=== PATIENT | male | born 1955 | race Hispanic/Latino ===

== ENCOUNTER → 2022-03-27 | Outpatient (CLI) | payer OTHER | END | disposition home or self-care (01) | LOC: RAH 15:01 | PROVIDERS: ATTEND Student in an Organized Health Care Education/Training Program | DX: N63.20 Unspecified lump in the left breast, unspecified quadrant (principal); D48.5 Neoplasm of uncertain behavior of skin | CPT/HCPCS: 76705 ==

== ENCOUNTER 2022-06-19 07:22 | Day surgery (SDC) | payer OTHER ==
[2022-06-15 10:15] VITALS: BP 132/77
[2022-06-15 10:26] LABS: BASOPHILS % (AUTO) 0.6 % (0.0-5.0); EOSINOPHILS % (AUTO) 1.2 % (0.0-8.0); HEMATOCRIT 41.4 % (42-54); MEAN CORPUSCULAR HEMOGLOBIN 30.5 pg (27.0-33.0); MEAN CORPUSCULAR HGB CONC 34.3 g/dL (32.0-36.0); MONOCYTES % (AUTO) 8.9 % (3.0-13.0); NEUTROPHILS % (AUTO) 46.1 % (40.0-77.0); PLATELET COUNT (AUTO) 192 K/uL (130-400); RED BLOOD CELL COUNT(AUTO) 4.65 MIL/uL (4.50-6.20); RED CELL DISTRIBUTION WIDTH 12.9 % (11.0-15.5); WHITE BLOOD COUNT (AUTO) 4.8 K/uL (4.8-10.8)
[2022-06-15 10:38] LABS: INR 0.93 (0.85-1.15); PROTHROMBIN TIME 10.2 SEC (9.6-11.6)
[2022-06-15 10:39] LABS: PARTIAL THROMBOPLASTIN TIME 32.5 SEC (26.3-35.5)
[2022-06-15 10:41] LABS: ALBUMIN 3.8 g/dL (3.5-5.0); CREATININE 0.8 mg/dL (0.5-1.5); POTASSIUM 4.2 mmol/L (3.5-5.1); TOTAL PROTEIN, SERUM 7.6 g/dL (6.0-8.3)
[2022-06-15 11:00] LABS: APPEARANCE,URINE CLEAR (CLEAR); BILIRUBIN,URINE NEGATIVE (NEGATIVE); COLOR,URINE YELLOW (YELLOW); GLUCOSE, URINE (UA) NEGATIVE (NEGATIVE); KETONES,URINE NEGATIVE (NEGATIVE); LEUKOCYTE ESTERASE ,URINE NEGATIVE Leu/uL (NEGATIVE); NITRATE,URINE NEGATIVE (NEGATIVE); OCCULT BLOOD,URINE NEGATIVE (NEGATIVE); PH,URINE 5.5 (5.0-8.0); PROTEIN,URINE NEGATIVE (NEGATIVE); UROBILINOGEN,URINE 0.2 mg/dL (0.2-1.0)
[2022-06-19] VITALS (15 sets, daily range): BP systolic 15–157; BP diastolic 72–89
[~2022-06-19] VITALS: Ht 167.6 cm; Wt 72.9 kg
[~2022-06-19 07:22] MED LIST: ATOR40TA71 PO; CEFAZOLIN SODIUM 1 GM VIAL IVP SCH; EZET10TA13 PO; GABA-529 PO
[2022-06-19] MEDS ORDERED: FENTANYL CITRATE PF 50 MCG/1 ML 2ML VIAL ONE (08:22)
[2022-06-19] MEDS ORDERED: PROPOFOL 10 MG/ML 20ML VIAL IV ONE (08:22)
[2022-06-19] MEDS ORDERED: MIDAZOLAM HCL 1 MG/ML 2ML VIAL ONE (08:22)
[2022-06-19] MEDS ORDERED: ROCURONIUM 10MG/1ML SYR 10 MG/ML ML ONE (08:29)
[2022-06-19] MEDS ORDERED: ONDANSETRON 4MG INJ ONE (08:29)
[2022-06-19] MEDS ORDERED: BUPIVACAINE/PF 0.25% 30ML VIAL IJ ONE (08:33)
[2022-06-19] MEDS: LACTATED RINGERS 1000ML 1,000 ML IV ONE ×2 (08:58→09:31)
[2022-06-19] MEDS ORDERED: NEOSTIGMINE 5MG/5ML SYR IV ONE (09:20)
[2022-06-19] MEDS ORDERED: GLYCOPYRROLATE 1 MG/5 ML SYRINGE ONE (09:21)
[2022-06-19] MEDS ORDERED: MEPERIDINE-PF 25 MG/ML SYG ONE (09:54)
== END 2022-06-19 11:00 | disposition home or self-care (01) ==
LOC: DAH 07:22
PROVIDERS: ATTEND Student in an Organized Health Care Education/Training Program
DX: D17.1 Benign lipomatous neoplasm of skin and subcutaneous tissue of trunk (principal); E78.5 Hyperlipidemia, unspecified; Z79.01 Long term (current) use of anticoagulants; Z79.899 Other long term (current) drug therapy; Z87.891 Personal history of nicotine dependence
CPT/HCPCS: 80053; 85025; 85610; 85730; 87426; 81003; 36415; 71045; 93005; 21933; A6260; A4663; J7120 ×2; A4452; J3010; J0690; J3490 ×2; J2710; J2250; J2704; J2405; J2175; A4215; A4223; A4222; A4221; A4600

== ENCOUNTER 2023-03-22 10:27 | Emergency (ER) | payer OTHER ==
[~2023-03-22] VITALS: Ht 162.6 cm; Wt 70.3 kg
[~2023-03-22 10:27] MED LIST changes: -CEFAZOLIN SODIUM 1 GM VIAL IVP SCH
[2023-03-22 10:31] VITALS: BP 147/75
[2023-03-22] MEDS ORDERED: CYCL10TA16 PO (11:54)
[2023-03-22] MEDS ORDERED: CYCLOBENZAPRINE HCL 10 MG TABLET PO ONE (12:00)
== END 2023-03-22 12:31 | disposition home or self-care (01) ==
LOC: EDH 10:27
DX: M54.42 Lumbago with sciatica, left side (principal); Z79.899 Other long term (current) drug therapy